=== PATIENT | male | born 1955 | race Caucasian/White ===

== ENCOUNTER 2018-04-21 17:59 | Emergency (ER) | payer OTHER ==
[2018-04-21] MEDS ORDERED: TAMSULOSIN HCL 0.4 MG CAP PO ONE (18:21)
[2018-04-21] MEDS ORDERED: LIDOCAINE 2% JELLY 20 ML (UROJECT) UR ONE (18:21)
[2018-04-21] MEDS ORDERED: CEPHALEXIN 500 MG CAP PO ONE (18:26)
--- NOTE | 2018-04-21 18:27 | EDPHY ---
H & P Stated Complaint: unable to urinate since 11 am today Time Seen by Provider: 04/21/18 18:01 - Personal History Current Tetanus/Diphtheria Vaccine: Yes - Medical/Surgical History Hx Asthma: No Hx Chronic Respiratory Disease: No Hx Diabetes: No Hx Cardiac Disease: No Hx Renal Disease: No Hx Cirrhosis: No Hx Alcoholism: No Hx HIV/AIDS: No Hx Splenectomy or Spleen Trauma: No Other PMH: enlarged prostate - Social History Smoking Status: Never smoked Constitutional: Initial Vital Signs Temperature (C) 36.7 C 04/21/18 18:01 Heart Rate 133 H 04/21/18 18:01 Respiratory Rate 20 04/21/18 18:01 Blood Pressure 176/109 H 04/21/18 18:01 O2 Sat (%) 97 04/21/18 18:01 O2 Delivery Mode Room Air Allergies/Adverse Reactions: No Known Allergies Allergy (Unverified 04/21/18 18:00) Home Medications: Medication Instructions Recorded Cephalexin [Keflex (RX)] 500 mg PO TID #30 cap 04/21/18 Medical Decision Making ED Course/Re-evaluation: CHIEF COMPLAINT: Urinary retention HISTORY OF PRESENT ILLNESS: This patient is a 62 y/o male with history of BPH presents with acute urinary retention. He has been unable to urinate for several hours after horseback riding for two hours earlier today. He denies hematuria, dysuria, or any urgency or frequency prior to this event. He notes he is prescribed Flomax but has not been taking this due to negative side effects. He did take a dose this afternoon about one hour prior to arrival to see if this would relieve his discomfort. He denies any trauma or recent illness. REVIEW OF SYSTEMS: A comprehensive 10 system review of systems is otherwise negative aside from elements mentioned in the history of present illness and medical decision making. PHYSICAL EXAM: HR, BP, O2 Sat, RR. Temp noted General Appearance: Alert, well hydrated, appropriate, and non-toxic appearing. Head: Atraumatic without scalp tenderness or obvious injury Eyes: Pupils equal, round, reactive to light and accommodation, EOMI, no trauma , no injection. Ears: Clear bilaterally, no perforation, normal landmarks Nose: Atraumatic, no rhinorrhea, clear. Throat: There is no erythema or exudates, no lesions, normal tonsils, mucus membranes moist. Neck: Supple, 2+ carotid upstroke, nontender, no lymphadenopathy. Respiratory: No retractions, no distress, no wheezes, and no accessory muscle use. Lungs are clear to auscultation bilaterally. Cardiovascular: Regular rate and rhythm, no murmurs, rubs, or gallops. Bilateral carotid, radial, dorsalis pedis, and posterior tibial pulses intact. Good capillary refill all extremities. Gastrointestinal: Abdomen is soft, nontender, non-distended, no masses, no rebound, no guarding, no peritoneal signs. Musculoskeletal: Normal active ROM of all extremities, atraumatic. Neurological: Alert, appropriate, and interactive. The patient has normal DTRs and non-focal cranial nerves, motor, sensory, and cerebellar exam. Skin: No rashes, good turgor, no nodules on palpation. Past medical history: BPH Past surgical history: Noncontributory Family history: Noncontributory. Social history: . Employed. Does not abuse tobacco, drugs, or alcohol. DIFFERENTIAL DIAGNOSIS: The differential diagnosis for the patient's urinary retention included but was not limited to medication side effect, neurologic causes, outflow obstruction including prostatic hypertrophy, and infection. MEDICAL DECISION MAKIN62 y/o male with history of BPH presets with acute urinary retention after horseback riding earlier today. He has already taken Flomax this afternoon, about one hour prior to arrival. 630mL of urine visualized on bladder scanner. Plan to place Loaiza catheter for relief. Loaiza catheter placed. Patient tolerated the procedure well and had instant relief. Reassessed. Plan to discharge home in good condition with referral to urology. Follow up and return precautions discussed. The patient is comfortable with this plan. - Data Points Medications Given: Discontinued Medications Cephalexin HCl (Keflex) 500 mg PO EDNOW ONE PRN Reason: Protocol Stop: 04/21/18 18:27 Last Admin: 04/21/18 18:59 Dose: 500 mg Lidocaine (Uroject Lidocaine 2% Jelly) 20 ml UR EDNOW ONE Stop: 04/21/18 18:22 Last Admin: 04/21/18 18:25 Dose: 20 ml Tamsulosin HCl (Flomax) 0.4 mg PO EDNOW ONE Stop: 04/21/18 18:22 Last Admin: 04/21/18 19:06 Dose: Not Given Departure - Departure Disposition: Home, Routine, Self-Care Clinical Impression: Acute retention of urine Condition: Good Instructions: Cephalexin (By mouth), Urinary Retention in Men (ED) Additional Instructions: Follow up with urology this week. We have referred you to our urologist communications department chairperson. If you have a regular urologist, you may follow up with that physician instead. Take Keflex as prescribed. Take your Flomax as prescribed. Return to the Emergency Department for fever, worsening pain, flank pain or failure to improve within 72 hours. Referrals: Brenda Baldwin MD [Primary Care Provider] - As per Instructions Neville Jarvis MD [Medical Doctor] - As per Instructions Prescriptions: Cephalexin [Keflex (RX)] 500 mg PO TID #30 cap Report Scribed for: John Wilkinson Report Scribed by: Lexi Soria Date of Report: 04/21/18 Time of Report: 18:36
[2018-04-21 19:08] VITALS: BP 128/68
== END 2018-04-21 19:12 | disposition home or self-care (01) ==
PROC: 0T9B70Z Drainage of Bladder with Drainage Device, Via Natural or Artificial Opening (ICD-10-PCS; principal; 2018-04-21)
PROC: 4A0D7LZ Measurement of Urinary Volume, Via Natural or Artificial Opening (ICD-10-PCS; principal; 2018-04-21)
DX: N40.1 Benign prostatic hyperplasia with lower urinary tract symptoms (principal); R33.9 Retention of urine, unspecified